=== PATIENT | female | born 1995 | race Caucasian/White ===

== ENCOUNTER → 2018-03-26 | Emergency (ER) | payer SELFPAY ==
[~2018-03-26] VITALS: Ht 177.8 cm; Wt 84.8 kg
--- NOTE | 2018-03-26 18:05 | NUR ---
[facility] 86 UNRESPONSIVE AFTER USING HEROIN, COCAINE, ALCOHOL. GIVEN 2 GM NARCAN BY ROOMMATE. AWAKE AND ALERT ON ARRIVAL TO ER. BREATHING EVEN AND UNLABORED. NO SOB, NAD, VITALS STABLE. SAFETY AND COMFORT MEASURES IN PLACE. MD AT BEDSIDE FOR EVAL.
[2018-03-26 18:26] VITALS: BP 125/78
== END | disposition left against medical advice (07) ==
LOC: ER 17:55
DX: T40.1X1A Poisoning by heroin, accidental (unintentional), initial encounter (principal); F14.10 Cocaine abuse, uncomplicated; F10.10 Alcohol abuse, uncomplicated; Z88.0 Allergy status to penicillin; Z88.1 Allergy status to other antibiotic agents; Y90.9 Presence of alcohol in blood, level not specified; Y92.89 Other specified places as the place of occurrence of the external cause
CPT/HCPCS: 99283; A4606; Z7610